=== PATIENT | female | born 1990 | race American Indian/Alaskan Native ===

== ENCOUNTER 2020-07-21 08:24 | Emergency (ER) | payer MEDICAID ==
[2020-07-21 08:48] VITALS: BP 125/85
--- NOTE | 2020-07-21 11:05 | Event Note ---
ED Screening Note Date of service: 07/21/20 Time: 11:03 ED Screening Note: 30-year-old female patient with history of bipolar disorder and schizophrenia presents to the emergency department complaints of diffuse body aches starting last night. No preceding fall, trauma, or injury. Patient states she "needs fluids and an injection." She has been off of her Abilify for approximately 2 weeks. States she always develops these symptoms when her "bipolar schizophrenia gets out of control." When asked about hallucinations, patient responds, "not really." Denies suicidal and homicidal ideation. Tachycardic in triage. General: Awake, appropriately interactive, no acute distress. Neck: Supple. Full range of motion intact. Cardiovascular: Normal peripheral perfusion. Pulmonary: No respiratory distress. Patient is speaking normally without use of accessory muscles. Skin: No apparent rashes or lesions. Neurological: No facial asymmetry. Speech is clear. Follows commands. Patient is alert and oriented. Musculoskeletal: Moves all four extremities spontaneously with normal range of m otion. Psych: Cooperative. Pressured speech. I have greeted and performed a focused rapid initial assessment of this patient. A comprehensive ED assessment and evaluation of the patient, analysis of all test results, and completion of the medical decision-making process will be conducted by additional ED providers. This initial assessment/diagnostic orders/clinical plan/treatment(s) is/are subject to change based on patients health status, clinical progression and re-assessment. Further treatment and workup at subsequent clinical provider's discretion. Patient/guardian urged not to elope from the ED as their condition may be serious if not clinically assessed and managed.
--- NOTE | 2020-07-21 12:01 | Emergency Department Report ---
HPI - General Chief Complaint: Psych Time Seen by Provider: 07/21/20 11:47 - HPI HPI: Room 4 The patient is a 30-year-old female present with a chief complaint of "pain throughout my body." The patient has a history of schizophrenia and bipolar disorder is reportedly noncompliant with medications. The patient states for the past 2 to 3 days she has suffered from intermittent insomnia as well as "pain throughout" her body. When asked where specifically in the body she hurts the patient states everywhere. Patient denies suicidal or homicidal ideation. Patient denies auditory visual hallucinations. Patient admits to a cough but refuses an x-ray when offered in the ED. Patient denies history of fever nausea or vomiting ED Past Medical Hx - Past Medical History Previous Medical History?: Yes Hx Psychiatric Treatment: Yes (Bipolar, Schizophrenia) Additional medical history: Noncompliance with meds - Surgical History Past Surgical History?: No - Family History Family history: no significant - Social History Smoking Status: Never Smoker Substance Use Type: None (Denies illicit drug use) ED Review of Systems ROS: Stated complaint: BODY PAIN Other details as noted in HPI Constitutional: denies: fever Eyes: denies: eye pain ENT: denies: throat pain Respiratory: no symptoms reported Cardiovascular: as per HPI Endocrine: no symptoms reported Gastrointestinal: as per HPI Genitourinary: denies: dysuria Musculoskeletal: as per HPI Neurological: as per HPI Psychiatric: denies: auditory hallucinations, visual hallucinations, homicidal thoughts, suicidal thoughts Physical Exam - Physical Exam Vital Signs: Vital Signs 07/21/20 08:44 Temperature 98.3 F Pulse Rate 107 H Respiratory 20 Rate Blood Pressure 125/85 O2 Sat by Pulse 99 Oximetry Physical Exam: GENERAL: The patient is well-developed well-nourished female sitting on stretcher not appearing to be in acute distress HEENT: Normocephalic. Atraumatic. Extraocular motions are intact. Patient has moist mucous membranes. NECK: Supple. Trachea midline CHEST/LUNGS: Clear to auscultation. There is no respiratory distress noted. HEART/CARDIOVASCULAR: Regular. There is no tachycardia. There is no gallop rub or murmur. ABDOMEN: Abdomen is soft, nontender. Patient has normal bowel sounds. There is no abdominal distention. SKIN: There is no rash. There is no edema. There is no diaphoresis. NEURO: The patient is awake, alert, and oriented. The patient is cooperative. The patient has no focal neurologic deficits. The patient has normal speech MUSCULOSKELETAL: There is no evidence of acute injury. ED Course Vital Signs 07/21/20 08:44 Temperature 98.3 F Pulse Rate 107 H Respiratory 20 Rate Blood Pressure 125/85 O2 Sat by Pulse 99 Oximetry ED Medical Decision Making - Lab Data Result diagrams: 07/21/20 12:02 07/21/20 12:02 Laboratory Results - last 72 hr 07/21/20 07/21/20 07/21/20 12:02 12:02 12:02 WBC 7.7 RBC 5.02 Hgb 14.6 H Hct 45.1 H MCV 90 MCH 29 MCHC 32 RDW 14.7 Plt Count 271 Lymph % (Auto) 16.8 [place] % (Auto) 6.7 Eos % (Auto) 0.1 Baso % (Auto) 0.6 Lymph # (Auto) 1.3 [place] # (Auto) 0.5 Eos # (Auto) 0.0 Baso # (Auto) 0.0 Seg Neutrophils % 75.8 H Seg Neutrophils # 5.9 Sodium 138 Potassium 3.5 L Chloride 99.3 Carbon Dioxide 25 Anion Gap 17 BUN 10 Creatinine 0.6 Estimated GFR > 60 BUN/Creatinine Ratio 17 Glucose 84 Calcium 9.3 Total Bilirubin 0.50 AST 12 ALT 15 Alkaline Phosphatase 107 Total Creatine Kinase CK-MB (CK-2) CK-MB (CK-2) Rel Index Troponin T Total Protein 8.1 Albumin 4.7 Albumin/Globulin Ratio 1.4 HCG, Qual Salicylates < 0.3 L Acetaminophen Plasma/Serum Alcohol 07/21/20 07/21/20 07/21/20 12:02 12:02 12:02 WBC RBC Hgb Hct MCV MCH MCHC RDW Plt Count Lymph % (Auto) [place] % (Auto) Eos % (Auto) Baso % (Auto) Lymph # (Auto) [place] # (Auto) Eos # (Auto) Baso # (Auto) Seg Neutrophils % Seg Neutrophils # Sodium Potassium Chloride Carbon Dioxide Anion Gap BUN Creatinine Estimated GFR BUN/Creatinine Ratio Glucose Calcium Total Bilirubin AST ALT Alkaline Phosphatase Total Creatine Kinase CK-MB (CK-2) CK-MB (CK-2) Rel Index Troponin T Total Protein Albumin Albumin/Globulin Ratio HCG, Qual Negative Salicylates Acetaminophen 5.0 L Plasma/Serum Alcohol < 0.01 06/06/21 12:02 WBC RBC Hgb Hct MCV MCH MCHC RDW Plt Count Lymph % (Auto) [place] % (Auto) Eos % (Auto) Baso % (Auto) Lymph # (Auto) [place] # (Auto) Eos # (Auto) Baso # (Auto) Seg Neutrophils % Seg Neutrophils # Sodium Potassium Chloride Carbon Dioxide Anion Gap BUN Creatinine Estimated GFR BUN/Creatinine Ratio Glucose Calcium Total Bilirubin AST ALT Alkaline Phosphatase Total Creatine Kinase 73 CK-MB (CK-2) < 1.0 CK-MB (CK-2) Rel Index 1.3 Troponin T < 0.010 Total Protein Albumin Albumin/Globulin Ratio HCG, Qual Salicylates Acetaminophen Plasma/Serum Alcohol - Differential Diagnosis Schizophrenia, rhabdomyolysis, myalgia, ACS Critical care attestation.: If time is entered above; I have spent that time in minutes in the direct care of this critically ill patient, excluding procedure time. ED Disposition Clinical Impression: Whole body pain Disposition: DC-07 LEFT AGAINST MED ADVICE Is pt being admited?: No Does the pt Need Aspirin: No Condition: Undetermined Referrals: PRIMARY CARE, [Primary Care Provider] - 3-5 Days Forms: AMA Form
[2020-07-21 12:24] LABS: Basophils % (Auto) 0.6 % (0.0-1.8); Eosinophils % (Auto) 0.1 % (0.0-4.3); Hematocrit 45.1 % (30.3-42.9); Hemoglobin 14.6 gm/dl (10.1-14.3); Lymphocytes # (Auto) 1.3 K/mm3 (1.2-5.4); Lymphocytes % (Auto) 16.8 % (13.4-35.0); Mean Corpuscular HGB Conc 32 % (30-34); Mean Corpuscular Volume 90 fl (79-97); Monocytes # (Auto) 0.5 K/mm3 (0.0-0.8); Monocytes % (Auto) 6.7 % (0.0-7.3); Platelet Count 271 K/mm3 (140-440); Red Blood Count 5.02 M/mm3 (3.65-5.03); Red Cell Distribution Width 14.7 % (13.2-15.2)
[2020-07-21 12:41] LABS: Creatine Kinase MB < 1.0 ng/mL (0.0-4.0)
[2020-07-21 12:42] LABS: Alanine Aminotransferase 15 units/L (7-56); Albumin 4.7 g/dL (3.9-5); BUN/Creatinine Ratio 17; Blood Urea Nitrogen 10 mg/dL (7-17); Calcium 9.3 mg/dL (8.4-10.2); Hemolysis Index 4
== END 2020-07-21 12:14 | disposition left against medical advice (07) ==
LOC: ED 08:24
DX: M79.18 Myalgia, other site (principal); F20.9 Schizophrenia, unspecified; F31.9 Bipolar disorder, unspecified
CPT/HCPCS: 36415; 80053; 80320; 82550; 82553; 84484; 84703; 85025; 99283; G0480